=== PATIENT | male | born 1995 | race Caucasian/White ===

== ENCOUNTER → 2021-02-23 09:36 | Outpatient (CLI) | payer OTHER, SELFPAY ==
--- NOTE | 2021-02-23 09:38 | DI.RAD.S_ITS ---
PROCEDURE: XR WRIST LT MIN 3V INDICATIONS: Left wrist pain. TECHNIQUE: 3 views of the wrist were acquired. COMPARISON: None. FINDINGS: IMPRESSION: No acute osseous abnormality. Dictated by: Danny Lamar M.D. on 02/23/2021 at 9:52 Approved by: Danny Lamar M.D. on 02/23/2021 at 9:56
== END ==
PROVIDERS: Referring Provider Nurse Practitioner Family; Visit Provider Nurse Practitioner Family
DX: M25.532 Pain in left wrist (principal)
CPT/HCPCS: 73110

== ENCOUNTER → 2021-08-13 12:39 | Outpatient (CLI) | payer OTHER, SELFPAY ==
--- NOTE | 2021-08-13 | DI.RAD.S_ITS ---
PROCEDURE: XR CHEST 2V INDICATIONS: COUGH TECHNIQUE: 2 views of the chest were acquired. COMPARISON: None. FINDINGS: Surgical changes and devices: None. Lungs and pleura: Lungs are clear. No pleural effusions or pneumothorax. Mediastinum: Mediastinal contours are normal. Heart size is normal. Bones and chest wall: No suspicious bony abnormalities. Soft tissues appear unremarkable. IMPRESSION: No source for cough identified radiographically. Dictated by: Nelson Bhakta RRA Interpreted: Yvette Cruz MD on 08/13/2021 at 12:50 Transcribed by: DAMIR on 08/13/2021 at 12:50 Approved by: Yvette Cruz MD, PhD on 08/13/2021 at 13:08
== END ==
PROVIDERS: Referring Provider Physician Assistant; Visit Provider Physician Assistant
DX: R05.9 Cough, unspecified (principal)
CPT/HCPCS: 71046

== ENCOUNTER 2022-02-25 23:40 | Emergency (ER) | payer OTHER, SELFPAY ==
[2022-02-25 23:54] VITALS: BP 131/100; PULSE 104; RESP 20; TEMP 37.2; O2SAT 96; BMI 40.8
[2022-02-26] VITALS (46 sets, daily range): BP systolic 111–145; BP diastolic 56–79; PULSE 77–97; RESP 12–28; O2SAT 96–100
--- NOTE | 2022-02-26 00:54 | PC.NURSE ---
pt had a plate removed from his right lower leg a week ago yesterday the leg became red and today the leg started oozing and draining, and became painful to bear weight on, pt states until yesterday he was not having any pain and the leg was healing fine. pt was placed on Keflex for the cellulitis yesterday, lower leg is swollen and red incision is intact but oozing
--- NOTE | 2022-02-26 00:57 | DI.RAD.S_ITS ---
PROCEDURE: XR TIBIA FUBULA RT 2V INDICATIONS: recent plate removal TECHNIQUE: 2 views of the tibia and fibula were acquired. COMPARISON: None. FINDINGS: Bones: No fractures or dislocations. There are postsurgical changes within the mid and distal tibial shaft consistent with prior screw plate fixation. Periosteal thickening and sclerosis is demonstrated within the adjacent proximal to mid tibial shaft. No discrete bony erosions. Soft tissues: No suspicious soft tissue calcifications or masses. IMPRESSION: 1. Sequelae of prior surgical fixation in the tibial shaft. 2. Periosteal thickening and sclerosis along the surgical bed are nonspecific and the differential includes sequelae of osteomyelitis or recurrent disease. Recommend further evaluation with a contrast enhanced MRI when clinically feasible. Dictated by: Costa Salvador M.D. on 02/26/2022 at 1:52 Approved by: Costa Salvador M.D. on 02/26/2022 at 1:55
--- NOTE | 2022-02-26 01:03 | ED_ITS ---
HPI - Extremity Injury (Lower) <Tato Meza DO - Last Filed: 02/27/22 18:47> General Chief Complaint: Extremity Injury, Lower Stated Complaint: CELLITUS IN RIGHT LEG POST SURGERY Time Seen by Provider: 02/26/22 00:57 Source: patient Mode of arrival: Ambulatory History of Present Illness HPI Narrative: 26-year-old male nonsmoker with history of osteosarcoma with prior orthopedic oncologic surgery at [facility] in 2019 had painful plate removed at about 10 days ago. He gradually developed some increasing pain, redness and swelling and had a small amount of drainage up until yesterday when he went to an outside facility and had evaluation and was placed on Keflex. He is now had 3 or 4 doses of the Keflex but has had fever and chills with increased pain and swelling had a significant amount of milky reddish drainage from of slightly dehisced incision. There is surrounding redness for the majority of his lower leg. He is not dizzy or lightheaded but does feel weak and nauseated. He denies any chest pain or shortness of breath. He denies vomiting but is slightly nauseated. Related Data Home Medications Medication Instructions Recorded Confirmed acetaminophen 500 mg tablet 1,000 mg PO TID PRN Pain (Scale 02/26/22 02/26/22 Score 4-6) aspirin 325 mg tablet,delayed 325 mg PO QAM 02/26/22 02/26/22 release bupropion HCl 300 mg 24 hr tablet, 300 mg PO QAM 02/26/22 02/26/22 extended release lamotrigine 200 mg tablet 200 mg PO DAILY 02/26/22 02/26/22 Allergies Allergy/AdvReac Type Severity Reaction Status Date / Time No Known Drug Allergies Allergy Unverified 02/23/21 09:38 Review of Systems <Tato Meza DO - Last Filed: 02/27/22 18:47> Review of Systems Narrative: GENERAL: See HPI HEENT: Denies sinus pain, ear pain, sore throat, difficulty swallowing, dizziness. RESPIRATORY: Denies dyspnea, cough, wheezing, hemoptysis, sputum. CARDIOVASCULAR: Denies chest pain, palpitations, orthopnea, edema, GASTROINTESTINAL: See HPI. : Denies dysuria, frequency, incontinence, hematuria, urinary retention. MUSCULOSKELETAL: denies weakness, joint pain, or bony pain SKIN: See HPI NEUROLOGIC: Denies weakness, headache, numbness, change in speech, confusion, seizures, incoordination. PSYCHIATRIC: No concerning psychosocial issues. 12 point review of systems is negative except for those stated above Patient History <Tato Meza DO - Last Filed: 02/27/22 18:47> Social History Smoking Status: Never smoker Smoking Status: Never smoker alcohol intake frequency: 0-2 drinks per day Substance Use Type: marijuana Exam <Tato Meza DO - Last Filed: 02/27/22 18:47> Narrative Exam Narrative: GENERAL: [26] year old patient appears stated age. Well-developed patient, in mild distress. HEAD: Atraumatic. Normocephalic. EYES: Pupils equal round and reactive. Extraocular motions intact. No scleral icterus. No injection or drainage. ENT: Nose without bleeding, purulent drainage. Throat without erythema, tonsillar hypertrophy or exudate. Airway patent. NECK: Trachea midline. Non tender CARDIOVASCULAR: Tachycardic but regular rhythm without murmurs, gallops, or rubs. RESPIRATORY: Clear to auscultation. Breath sounds equal bilaterally. No wheezes, rales, or rhonchi. GASTROINTESTINAL: Abdomen soft, non-tender, nondistended. EXTREMITIES: Right lower extremity with swelling, circumferential erythema and warmth from ankle to just below the knee. Incision has a few small areas of dehiscence with drainage that is bloody but cloudy BACK: Nontender without deformity or crepitance. No flank tenderness. NEURO: AOx3. SKIN: No rash or erythema of visible areas Initial Vital Signs Initial Vital Signs: Vital Signs Temperature 99 F 02/25/22 23:54 Pulse Rate 104 H 02/25/22 23:54 Respiratory Rate 20 02/25/22 23:54 Blood Pressure 131/100 H 02/25/22 23:54 Pulse Oximetry 96 02/25/22 23:54 Oxygen Delivery Method 02/25/22 23:54 <Jae Stewart DO - Last Filed: 02/26/22 18:21> Initial Vital Signs Initial Vital Signs: Vital Signs Temperature 99 F 02/25/22 23:54 Pulse Rate 104 H 02/25/22 23:54 Respiratory Rate 20 02/25/22 23:54 Blood Pressure 131/100 H 02/25/22 23:54 Pulse Oximetry 96 02/25/22 23:54 Oxygen Delivery Method 02/25/22 23:54 <Matthew Elizabeth MD - Last Filed: 02/27/22 13:39> Initial Vital Signs Initial Vital Signs: Vital Signs Temperature 99 F 02/25/22 23:54 Pulse Rate 104 H 02/25/22 23:54 Respiratory Rate 20 02/25/22 23:54 Blood Pressure 131/100 H 02/25/22 23:54 Pulse Oximetry 96 02/25/22 23:54 Oxygen Delivery Method 02/25/22 23:54 Course <Tato Meza DO - Last Filed: 02/27/22 18:47> Orders Ordered: Discontinued Medications Enoxaparin Sodium (Enoxaparin 40 Mg/0.4 Ml Syringe) 40 mg SUBCUT DAILY [facility] Last Admin: 02/27/22 09:28 Dose: 40 mg Documented By: UGO Lactated Ringer's (Lactated Ringers) 2,328 mls @ 776 mls/hr 30 ml/kg infuse over 3 hr (2328 ml) IV NOW ONE Stop: 02/26/22 03:56 Last Infusion: 02/26/22 04:00 Dose: 0 mls/hr Documented By: Admin: 02/26/22 01:09 Dose: 776 mls/hr Documented By: JACK Vancomycin HCl/Dextrose (Vancomycin) 2,000 mg in 400 mls @ 200 mls/hr IV NOW ONE Stop: 02/26/22 07:11 Last Infusion: 02/26/22 07:29 Dose: 0 mls/hr Documented By: Admin: 02/26/22 05:24 Dose: 200 mls/hr Documented By: PARUL Vancomycin HCl/Dextrose (Vancomycin) 1,500 mg in 300 mls @ 200 mls/hr IV Q12H [facility] Last Infusion: 02/27/22 06:41 Dose: 0 mls/hr Documented By: Admin: 02/27/22 05:01 Dose: 200 mls/hr Documented By: Infusion: 02/26/22 19:15 Dose: 0 mls/hr Documented By: Admin: 02/26/22 17:32 Dose: 200 mls/hr Documented By: LETA Ketorolac Tromethamine (Ketorolac 30 Mg/Ml Vial) 30 mg IV NOW ONE Stop: 02/27/22 10:53 Last Admin: 02/27/22 11:34 Dose: 30 mg Documented By: ELDA Vancomycin HCl (Vancomycin Per Pharmacy) 1 request [facility] NOW ONE Stop: 02/26/22 16:11 Last Admin: 02/26/22 17:32 Dose: 1 request Documented By: LETA Vancomycin HCl (Vancomycin Trough) 1 request [facility] [address] [facility] Stop: 02/27/22 16:31 Vancomycin HCl (Vancomycin Peak) 1 request [facility] [address] [facility] Stop: 02/27/22 19:31 Consultations Consultation #1: [phone] - call to /[facility] transfer given sepsis and post operative infection 0523 - call back from Orthopedic Oncology ([place]). Requests Vanco 20mg/kg and transfer to ortho service. Currently no beds however, requests MRI RLE w/wo in event of prolonged delay Vital Signs Vital signs: Vital Signs - 8 hr 02/27/22 05:30 02/27/22 06:00 02/27/22 06:01 Pulse Rate 73 74 Respiratory Rate Blood Pressure 116/85 Pulse Oximetry 98 97 02/27/22 06:01 02/27/22 06:30 02/27/22 07:00 Pulse Rate 71 73 81 Respiratory Rate 18 Blood Pressure Pulse Oximetry 98 98 98 02/27/22 07:30 02/27/22 08:00 02/27/22 08:01 Pulse Rate 74 68 75 Respiratory Rate Blood Pressure Pulse Oximetry 97 99 99 02/27/22 08:01 02/27/22 08:30 02/27/22 09:00 Pulse Rate 69 67 Respiratory Rate Blood Pressure 116/59 L Pulse Oximetry 99 97 02/27/22 09:29 02/27/22 09:29 02/27/22 09:30 Pulse Rate 81 81 Respiratory Rate Blood Pressure 121/79 Pulse Oximetry 98 99 02/27/22 10:00 02/27/22 10:00 Pulse Rate 71 Respiratory Rate Blood Pressure 125/67 Pulse Oximetry 98 <Jae Stewart DO - Last Filed: 02/26/22 18:21> Orders Ordered: Discontinued Medications Enoxaparin Sodium (Enoxaparin 40 Mg/0.4 Ml Syringe) 40 mg SUBCUT DAILY [facility] Last Admin: 02/27/22 09:28 Dose: 40 mg Documented By: UGO Lactated Ringer's (Lactated Ringers) 2,328 mls @ 776 mls/hr 30 ml/kg infuse over 3 hr (2328 ml) IV NOW ONE Stop: 02/26/22 03:56 Last Infusion: 02/26/22 04:00 Dose: 0 mls/hr Documented By: Admin: 02/26/22 01:09 Dose: 776 mls/hr Documented By: JACK Vancomycin HCl/Dextrose (Vancomycin) 2,000 mg in 400 mls @ 200 mls/hr IV NOW ONE Stop: 02/26/22 07:11 Last Infusion: 02/26/22 07:29 Dose: 0 mls/hr Documented By: Admin: 02/26/22 05:24 Dose: 200 mls/hr Documented By: PARUL Vancomycin HCl/Dextrose (Vancomycin) 1,500 mg in 300 mls @ 200 mls/hr IV Q12H [facility] Last Infusion: 02/27/22 06:41 Dose: 0 mls/hr Documented By: Admin: 02/27/22 05:01 Dose: 200 mls/hr Documented By: Infusion: 02/26/22 19:15 Dose: 0 mls/hr Documented By: Admin: 02/26/22 17:32 Dose: 200 mls/hr Documented By: LETA Ketorolac Tromethamine (Ketorolac 30 Mg/Ml Vial) 30 mg IV NOW ONE Stop: 02/27/22 10:53 Last Admin: 02/27/22 11:34 Dose: 30 mg Documented By: ELDA Vancomycin HCl (Vancomycin Per Pharmacy) 1 request [facility] NOW ONE Stop: 02/26/22 16:11 Last Admin: 02/26/22 17:32 Dose: 1 request Documented By: LETA Vancomycin HCl (Vancomycin Trough) 1 request [facility] [address] [facility] Stop: 02/27/22 16:31 Vancomycin HCl (Vancomycin Peak) 1 request [facility] [address] [facility] Stop: 02/27/22 19:31 Vital Signs Vital signs: Vital Signs - 8 hr 02/27/22 05:30 02/27/22 06:00 02/27/22 06:01 Pulse Rate 73 74 Respiratory Rate Blood Pressure 116/85 Pulse Oximetry 98 97 02/27/22 06:01 02/27/22 06:30 02/27/22 07:00 Pulse Rate 71 73 81 Respiratory Rate 18 Blood Pressure Pulse Oximetry 98 98 98 02/27/22 07:30 02/27/22 08:00 02/27/22 08:01 Pulse Rate 74 68 75 Respiratory Rate Blood Pressure Pulse Oximetry 97 99 99 02/27/22 08:01 02/27/22 08:30 02/27/22 09:00 Pulse Rate 69 67 Respiratory Rate Blood Pressure 116/59 L Pulse Oximetry 99 97 02/27/22 09:29 02/27/22 09:29 02/27/22 09:30 Pulse Rate 81 81 Respiratory Rate Blood Pressure 121/79 Pulse Oximetry 98 99 02/27/22 10:00 02/27/22 10:00 Pulse Rate 71 Respiratory Rate Blood Pressure 125/67 Pulse Oximetry 98 <Matthew Elizabeth MD - Last Filed: 02/27/22 13:39> Course Course Narrative: Care was assumed from Dr. Meza at change of shift. I evaluated his wound. He was complaining about continues bleeding. He has a draining seroma, I was able to express a fair amount of fluid from the surgical site. I informed him of a prior conversation with [facility], he is on a waiting list for 4-5 days. He was quite upset, tell me he was in his then he would go down quickly and go to the OR. After my 1st visit he had a discussion with his father who is status intent of picking up the patient and driving him to the [facility] ER. They have now left. They walked out of the ER in [place], [place] yesterday, to come here. We have forwarded radiology and clinical data to you tub. Dr. Vargas at [facility] is notified of the patient's pending arrival.-Shaun CORDOVA. 13:30 02/27/22. Orders Ordered: Discontinued Medications Enoxaparin Sodium (Enoxaparin 40 Mg/0.4 Ml Syringe) 40 mg SUBCUT DAILY [facility] Last Admin: 02/27/22 09:28 Dose: 40 mg Documented By: Lactated Ringer's (Lactated Ringers) 2,328 mls @ 776 mls/hr 30 ml/kg infuse over 3 hr (2328 ml) IV NOW ONE Stop: 02/26/22 03:56 Last Infusion: 02/26/22 04:00 Dose: 0 mls/hr Documented By: Admin: 02/26/22 01:09 Dose: 776 mls/hr Documented By: JACK Vancomycin HCl/Dextrose (Vancomycin) 2,000 mg in 400 mls @ 200 mls/hr IV NOW ONE Stop: 02/26/22 07:11 Last Infusion: 02/26/22 07:29 Dose: 0 mls/hr Documented By: Admin: 02/26/22 05:24 Dose: 200 mls/hr Documented By: PARUL Vancomycin HCl/Dextrose (Vancomycin) 1,500 mg in 300 mls @ 200 mls/hr IV Q12H [facility] Last Infusion: 02/27/22 06:41 Dose: 0 mls/hr Documented By: Admin: 02/27/22 05:01 Dose: 200 mls/hr Documented By: Infusion: 02/26/22 19:15 Dose: 0 mls/hr Documented By: Admin: 02/26/22 17:32 Dose: 200 mls/hr Documented By: LETA Ketorolac Tromethamine (Ketorolac 30 Mg/Ml Vial) 30 mg IV NOW ONE Stop: 02/27/22 10:53 Last Admin: 02/27/22 11:34 Dose: 30 mg Documented By: ELDA Vancomycin HCl (Vancomycin Per Pharmacy) 1 request [facility] NOW ONE Stop: 02/26/22 16:11 Last Admin: 02/26/22 17:32 Dose: 1 request Documented By: LETA Vancomycin HCl (Vancomycin Trough) 1 request [facility] [address] [facility] Stop: 02/27/22 16:31 Vancomycin HCl (Vancomycin Peak) 1 request [facility] [address] [facility] Stop: 02/27/22 19:31 Vital Signs Vital signs: Vital Signs - 8 hr 02/27/22 05:30 02/27/22 06:00 02/27/22 06:01 Pulse Rate 73 74 Respiratory Rate Blood Pressure 116/85 Pulse Oximetry 98 97 02/27/22 06:01 02/27/22 06:30 02/27/22 07:00 Pulse Rate 71 73 81 Respiratory Rate 18 Blood Pressure Pulse Oximetry 98 98 98 02/27/22 07:30 02/27/22 08:00 02/27/22 08:01 Pulse Rate 74 68 75 Respiratory Rate Blood Pressure Pulse Oximetry 97 99 99 02/27/22 08:01 02/27/22 08:30 02/27/22 09:00 Pulse Rate 69 67 Respiratory Rate Blood Pressure 116/59 L Pulse Oximetry 99 97 02/27/22 09:29 02/27/22 09:29 02/27/22 09:30 Pulse Rate 81 81 Respiratory Rate Blood Pressure 121/79 Pulse Oximetry 98 99 02/27/22 10:00 02/27/22 10:00 Pulse Rate 71 Respiratory Rate Blood Pressure 125/67 Pulse Oximetry 98 MDM - Extremity Injury (Lower) <Tato Meza DO - Last Filed: 02/27/22 18:47> Lab Data Result diagrams: 02/26/22 01:00 02/26/22 01:00 Labs: Lab Results 02/26/22 02/26/22 02/26/22 Range/Units 01:00 01:00 01:00 WBC 20.9 H (4.5-11.0) X10^3/uL RBC 4.77 (4.5-5.9) X10^6/uL Hgb 14.8 (13.5-17.5) g/dL Hct 43.2 (41-53) % MCV 90.4 (80-100) fL MCH 30.9 (26-34) PG MCHC 34.2 (30-36) % RDW 12.9 (11.6-14.8) % Plt Count 185 (150-400) X10^3/uL Neut % (Auto) 84.7 H (50-75) % Lymph % (Auto) 6.9 L (25-40) % [place] % (Auto) 6.8 (3-14) % Eos % (Auto) 1.4 L (2-4) % Baso % (Auto) 0.2 (0-2) % Neut # (Auto) 06375 H (8543-3680) /uL Lymph # (Auto) 1400 (8538-4722) /uL [place] # (Auto) 1400 H (0-900) /uL Eos # (Auto) 300 (0-450) /uL Baso # (Auto) 100 (0-100) /uL Sodium 139 (137-145) mmol/L Potassium 3.6 (3.4-5.1) mmol/L Chloride 100 (98-107) mmol/L Carbon Dioxide 27 (22-32) mmol/L BUN 20 (9-20) mg/dL Creatinine 1.11 (0.66-1.25) mg/dL Estimated GFR > 60 (>60) mL/min BUN/Creatinine Ratio 18.0 (6-22) Glucose 108 H (70-100) mg/dL Lactate 0.7 (0.7-2.1) mmol/L Calcium 9.2 (8.4-10.2) mg/dL Total Bilirubin 2.3 H (0.2-1.3) mg/dL AST 30 (17-59) IU/L ALT 49 (<50) IU/L Alkaline Phosphatase 96 (38-126) U/L Total Creatine Kinase 52 L (55-170) U/L CK-MB (CK-2) TNP CK-MB (CK-2) Rel Index TNP Troponin I < 0.012 (0.01-0.034) ng/mL Total Protein 8.1 (6.3-8.2) g/dL Albumin 4.4 (3.5-5.0) g/dL Globulin 3.7 (1.7-4.1) g/dL Albumin/Globulin Ratio 1.2 (1.0-2.8) Procalcitonin 0.62 H (<0.5) ng/mL Urine RBC (0-5/HPF) Urine WBC (0-5/HPF) Ur Squamous Epith Cells (0-5/HPF) Urine Bacteria (None) Ur Culture Indicated? A. baumannii (PCR) (Not Detect) Stacy albicans (PCR) (Not Detect) C. glabrata (PCR) (Not Detect) C. krusei (PCR) (Not Detect) C. parapsilosis (PCR) (Not Detect) C. tropicalis (PCR) (Not Detect) SARS-CoV-2 (PCR) (Negative) Enterobacteriac sp PCR (Not Detect) E. cloacae complex PCR (Not Detect) Enterococcus sp PCR (Not Detect) E. coli (PCR) (Not Detect) H. influenzae (PCR) (Not Detect) Klebsiella oxytoca PCR (Not Detect) Klebsiella pneumoniae (Not Detect) List. monocytogenes PCR (Not Detect) N. meningitidis (PCR) (Not Detect) Proteus species (PCR) (Not Detect) Serratia marcescens PCR (Not Detect) Staphylococcus sp PCR (Not Detect) Staph aureus (PCR) (Not Detect) mecA-Methicil Res Gene Streptococcus sp PCR (Not Detect) Group A Strep (PCR) (Not Detect) Strep agalactiae (PCR) (Not Detect) Strep pneumoniae (PCR) (Not Detect) P. aeruginosa (PCR) (Not Detect) [place]/B-Vanco Res Genes KPC-Carbap Res Gene PCR 02/26/22 02/26/22 02/26/22 Range/Units 01:23 03:46 07:38 WBC (4.5-11.0) X10^3/uL RBC (4.5-5.9) X10^6/uL Hgb (13.5-17.5) g/dL Hct (41-53) % MCV (80-100) fL MCH (26-34) PG MCHC (30-36) % RDW (11.6-14.8) % Plt Count (150-400) X10^3/uL Neut % (Auto) (50-75) % Lymph % (Auto) (25-40) % [place] % (Auto) (3-14) % Eos % (Auto) (2-4) % Baso % (Auto) (0-2) % Neut # (Auto) (7358-7703) /uL Lymph # (Auto) (9631-2414) /uL [place] # (Auto) (0-900) /uL Eos # (Auto) (0-450) /uL Baso # (Auto) (0-100) /uL Sodium (137-145) mmol/L Potassium (3.4-5.1) mmol/L Chloride (98-107) mmol/L Carbon Dioxide (22-32) mmol/L BUN (9-20) mg/dL Creatinine (0.66-1.25) mg/dL Estimated GFR (>60) mL/min BUN/Creatinine Ratio (6-22) Glucose (70-100) mg/dL Lactate (0.7-2.1) mmol/L Calcium (8.4-10.2) mg/dL Total Bilirubin (0.2-1.3) mg/dL AST (17-59) IU/L ALT (<50) IU/L Alkaline Phosphatase (38-126) U/L Total Creatine Kinase (55-170) U/L CK-MB (CK-2) CK-MB (CK-2) Rel Index Troponin I (0.01-0.034) ng/mL Total Protein (6.3-8.2) g/dL Albumin (3.5-5.0) g/dL Globulin (1.7-4.1) g/dL Albumin/Globulin Ratio (1.0-2.8) Procalcitonin (<0.5) ng/mL Urine RBC None seen (0-5/HPF) Urine WBC None seen (0-5/HPF) Ur Squamous Epith Cells None seen (0-5/HPF) Urine Bacteria None seen (None) Ur Culture Indicated? Cult not indicated A. baumannii (PCR) Not detected (Not Detect) Stacy albicans (PCR) Not detected (Not Detect) C. glabrata (PCR) Not detected (Not Detect) C. krusei (PCR) Not detected (Not Detect) C. parapsilosis (PCR) Not detected (Not Detect) C. tropicalis (PCR) Not detected (Not Detect) SARS-CoV-2 (PCR) Negative (Negative) Enterobacteriac sp PCR Not detected (Not Detect) E. cloacae complex PCR Not detected (Not Detect) Enterococcus sp PCR Not detected (Not Detect) E. coli (PCR) Not detected (Not Detect) H. influenzae (PCR) Not detected (Not Detect) Klebsiella oxytoca PCR Not detected (Not Detect) Klebsiella pneumoniae Not detected (Not Detect) List. monocytogenes PCR Not detected (Not Detect) N. meningitidis (PCR) Not detected (Not Detect) Proteus species (PCR) Not detected (Not Detect) Serratia marcescens PCR Not detected (Not Detect) Staphylococcus sp PCR Not detected (Not Detect) Staph aureus (PCR) Not detected (Not Detect) mecA-Methicil Res Gene Not Reportable Streptococcus sp PCR Not detected (Not Detect) Group A Strep (PCR) Not detected (Not Detect) Strep agalactiae (PCR) Not detected (Not Detect) Strep pneumoniae (PCR) Not detected (Not Detect) P. aeruginosa (PCR) Not detected (Not Detect) [place]/B-Vanco Res Genes Not Reportable KPC-Carbap Res Gene PCR Not Reportable Urine Dip Bedside Urine Glucose Negative Bedside Urine Bilirubin - Negative Bedside Urine Ketone +++ 80 Urine Specific [place] 1.010 Bedside Urine Occult Blood - Negative Bedside Urine pH 7.5 Bedside Urine Protein + 30 Bedside Urine Urobilinogen - Negative Bedside Urine Nitrite - Negative Bedside Urine Leukocytes - Negative Esterase Imaging Data Extremity x-ray #1: Radiologist's Impression: [address] [address] XRay Report Signed Patient: Julius Chacon MR#: [id number] : 1995 Acct:[id number] Age/Sex: 26 / M Date of Service: 02/26/22 Loc: ED Accession Number: [id number] ?? Procedure: XR tibia fibula RT 2V Ordering Provider: Tato Meza D.O. PROCEDURE:? XR TIBIA FUBULA RT 2V ? INDICATIONS:? recent plate removal ? TECHNIQUE:? 2 views of the tibia and fibula were acquired.? ? COMPARISON:? None. ? FINDINGS:? ? Bones:? No fractures or dislocations.? There are postsurgical changes within the mid and distal tibial shaft consistent with prior screw plate fixation.? Periosteal thickening and sclerosis is demonstrated within the adjacent proximal to mid tibial shaft.? No discrete bony erosions. ? Soft tissues:? No suspicious soft tissue calcifications or masses.? ? IMPRESSION:? ? 1. Sequelae of prior surgical fixation in the tibial shaft. ? 2. Periosteal thickening and sclerosis along the surgical bed are nonspecific and the differential includes sequelae of osteomyelitis or recurrent disease.? Recommend further evaluation with a contrast enhanced MRI when clinically feasible.? ? ? Dictated by: Costa Salvador M.D. on 02/26/2022 at 1:52 ? ? Approved by: Costa Salvador M.D. on 02/26/2022 at 1:55 ? [facility] Narrative Medical decision making narrative: Dr stewart: Received turned over. Reviewed patient's history and physical exam and labs performed to this point. MRI shows cellulitis and deep fluid pocket. Images and push to [facility]. Will continue to keep in the emergency department until he has a bed at [facility] 02/26/22 1800 (Derrick) patient received back in signout. No significant change. Waiting on bed 2200 - call to /[facility] to discuss DVT prophylaxis. Ortho will call back [phone] - transfer center states they will call back at [phone] - [facility]/ Ortho requests patient be given Lovenox daily <Jae Stewart DO - Last Filed: 02/26/22 18:21> Lab Data Labs: Lab Results 02/26/22 02/26/22 02/26/22 Range/Units 01:00 01:00 01:00 WBC 20.9 H (4.5-11.0) X10^3/uL RBC 4.77 (4.5-5.9) X10^6/uL Hgb 14.8 (13.5-17.5) g/dL Hct 43.2 (41-53) % MCV 90.4 (80-100) fL MCH 30.9 (26-34) PG MCHC 34.2 (30-36) % RDW 12.9 (11.6-14.8) % Plt Count 185 (150-400) X10^3/uL Neut % (Auto) 84.7 H (50-75) % Lymph % (Auto) 6.9 L (25-40) % [place] % (Auto) 6.8 (3-14) % Eos % (Auto) 1.4 L (2-4) % Baso % (Auto) 0.2 (0-2) % Neut # (Auto) 79122 H (1632-4838) /uL Lymph # (Auto) 1400 (1219-4562) /uL [place] # (Auto) 1400 H (0-900) /uL Eos # (Auto) 300 (0-450) /uL Baso # (Auto) 100 (0-100) /uL Sodium 139 (137-145) mmol/L Potassium 3.6 (3.4-5.1) mmol/L Chloride 100 (98-107) mmol/L Carbon Dioxide 27 (22-32) mmol/L BUN 20 (9-20) mg/dL Creatinine 1.11 (0.66-1.25) mg/dL Estimated GFR > 60 (>60) mL/min BUN/Creatinine Ratio 18.0 (6-22) Glucose 108 H (70-100) mg/dL Lactate 0.7 (0.7-2.1) mmol/L Calcium 9.2 (8.4-10.2) mg/dL Total Bilirubin 2.3 H (0.2-1.3) mg/dL AST 30 (17-59) IU/L ALT 49 (<50) IU/L Alkaline Phosphatase 96 (38-126) U/L Total Creatine Kinase 52 L (55-170) U/L CK-MB (CK-2) TNP CK-MB (CK-2) Rel Index TNP Troponin I < 0.012 (0.01-0.034) ng/mL Total Protein 8.1 (6.3-8.2) g/dL Albumin 4.4 (3.5-5.0) g/dL Globulin 3.7 (1.7-4.1) g/dL Albumin/Globulin Ratio 1.2 (1.0-2.8) Procalcitonin 0.62 H (<0.5) ng/mL Urine RBC (0-5/HPF) Urine WBC (0-5/HPF) Ur Squamous Epith Cells (0-5/HPF) Urine Bacteria (None) Ur Culture Indicated? A. baumannii (PCR) (Not Detect) Stacy albicans (PCR) (Not Detect) C. glabrata (PCR) (Not Detect) C. krusei (PCR) (Not Detect) C. parapsilosis (PCR) (Not Detect) C. tropicalis (PCR) (Not Detect) SARS-CoV-2 (PCR) (Negative) Enterobacteriac sp PCR (Not Detect) E. cloacae complex PCR (Not Detect) Enterococcus sp PCR (Not Detect) E. coli (PCR) (Not Detect) H. influenzae (PCR) (Not Detect) Klebsiella oxytoca PCR (Not Detect) Klebsiella pneumoniae (Not Detect) List. monocytogenes PCR (Not Detect) N. meningitidis (PCR) (Not Detect) Proteus species (PCR) (Not Detect) Serratia marcescens PCR (Not Detect) Staphylococcus sp PCR (Not Detect) Staph aureus (PCR) (Not Detect) mecA-Methicil Res Gene Streptococcus sp PCR (Not Detect) Group A Strep (PCR) (Not Detect) Strep agalactiae (PCR) (Not Detect) Strep pneumoniae (PCR) (Not Detect) P. aeruginosa (PCR) (Not Detect) [place]/B-Vanco Res Genes KPC-Carbap Res Gene PCR 02/26/22 02/26/22 02/26/22 Range/Units 01:23 03:46 07:38 WBC (4.5-11.0) X10^3/uL RBC (4.5-5.9) X10^6/uL Hgb (13.5-17.5) g/dL Hct (41-53) % MCV (80-100) fL MCH (26-34) PG MCHC (30-36) % RDW (11.6-14.8) % Plt Count (150-400) X10^3/uL Neut % (Auto) (50-75) % Lymph % (Auto) (25-40) % [place] % (Auto) (3-14) % Eos % (Auto) (2-4) % Baso % (Auto) (0-2) % Neut # (Auto) (8447-4656) /uL Lymph # (Auto) (3186-0243) /uL [place] # (Auto) (0-900) /uL Eos # (Auto) (0-450) /uL Baso # (Auto) (0-100) /uL Sodium (137-145) mmol/L Potassium (3.4-5.1) mmol/L Chloride (98-107) mmol/L Carbon Dioxide (22-32) mmol/L BUN (9-20) mg/dL Creatinine (0.66-1.25) mg/dL Estimated GFR (>60) mL/min BUN/Creatinine Ratio (6-22) Glucose (70-100) mg/dL Lactate (0.7-2.1) mmol/L Calcium (8.4-10.2) mg/dL Total Bilirubin (0.2-1.3) mg/dL AST (17-59) IU/L ALT (<50) IU/L Alkaline Phosphatase (38-126) U/L Total Creatine Kinase (55-170) U/L CK-MB (CK-2) CK-MB (CK-2) Rel Index Troponin I (0.01-0.034) ng/mL Total Protein (6.3-8.2) g/dL Albumin (3.5-5.0) g/dL Globulin (1.7-4.1) g/dL Albumin/Globulin Ratio (1.0-2.8) Procalcitonin (<0.5) ng/mL Urine RBC None seen (0-5/HPF) Urine WBC None seen (0-5/HPF) Ur Squamous Epith Cells None seen (0-5/HPF) Urine Bacteria None seen (None) Ur Culture Indicated? Cult not indicated A. baumannii (PCR) Not detected (Not Detect) Stacy albicans (PCR) Not detected (Not Detect) C. glabrata (PCR) Not detected (Not Detect) C. krusei (PCR) Not detected (Not Detect) C. parapsilosis (PCR) Not detected (Not Detect) C. tropicalis (PCR) Not detected (Not Detect) SARS-CoV-2 (PCR) Negative (Negative) Enterobacteriac sp PCR Not detected (Not Detect) E. cloacae complex PCR Not detected (Not Detect) Enterococcus sp PCR Not detected (Not Detect) E. coli (PCR) Not detected (Not Detect) H. influenzae (PCR) Not detected (Not Detect) Klebsiella oxytoca PCR Not detected (Not Detect) Klebsiella pneumoniae Not detected (Not Detect) List. monocytogenes PCR Not detected (Not Detect) N. meningitidis (PCR) Not detected (Not Detect) Proteus species (PCR) Not detected (Not Detect) Serratia marcescens PCR Not detected (Not Detect) Staphylococcus sp PCR Not detected (Not Detect) Staph aureus (PCR) Not detected (Not Detect) mecA-Methicil Res Gene Not Reportable Streptococcus sp PCR Not detected (Not Detect) Group A Strep (PCR) Not detected (Not Detect) Strep agalactiae (PCR) Not detected (Not Detect) Strep pneumoniae (PCR) Not detected (Not Detect) P. aeruginosa (PCR) Not detected (Not Detect) [place]/B-Vanco Res Genes Not Reportable KPC-Carbap Res Gene PCR Not Reportable Urine Dip Bedside Urine Glucose Negative Bedside Urine Bilirubin - Negative Bedside Urine Ketone +++ 80 Urine Specific [place] 1.010 Bedside Urine Occult Blood - Negative Bedside Urine pH 7.5 Bedside Urine Protein + 30 Bedside Urine Urobilinogen - Negative Bedside Urine Nitrite - Negative Bedside Urine Leukocytes - Negative Esterase Imaging Data MRI LE: Radiologist's Impression: [address] [address] Magnetic Resonance Report Signed Patient: Julius Chacon MR#: [id number] : 1995 Acct:[id number] Age/Sex: 26 / M Date of Service: 02/26/22 Loc: ED Accession Number: [id number] ?? Procedure: MR lower leg RT wo/w con Ordering Provider: Tato Meza D.O. PROCEDURE:? MR LOWER LEG RT WO/W CON ? INDICATIONS:? post operative infection, request per ortho at ? TECHNIQUE:? Noncontrast coronal T1 spin echo and STIR, sagittal T1 spin echo with fat saturation and STIR, axial T1 spin echo and T2 fast spin echo with fat saturation.? After the administration of contrast, axial/sagittal/coronal T1 spin echo with fat saturation through the right lower leg.? ? COMPARISON:? [facility], CR, XR TIBIA FIBULA RT 2V, 02/26/2022, 0:57. ? FINDINGS:? Image quality:? Excellent.? ? Bones:? Evidence of prior surgery involving mid to distal tibial shaft is seen with surgical screw tracts seen.? There is a healing mid to distal tibial shaft fr acture.? No marrow edema.? No acute fracture or dislocation.? No abnormal intraosseous enhancement. ? Soft tissues:? Significant soft tissue edema and swelling along medial aspect of mid to distal right lower leg over mid to distal tibial shaft is seen and show mild heterogeneous contrast enhancement.? There is a lobulated nonenhancing fluid collection within this area and measures up to 3.6 x 1.9 x 7 cm in size series 4, image 20 and series 8, image 12.? No thick peripherally enhancing capsule is noted.? Fluid is seen extending along fascial planes superficial and deep to the gastrocnemius mu scle.? Mild T2 hyperintense signal within anterior and medial portion of medial head gastrocnemius muscle in mid calf level is seen.? No intramuscular collection is seen.? No other area of abnormal enhancement. ? IMPRESSION:? 1. Finding is suggestive of cellulitis involving medial and posterior right lower leg soft tissue at the level of mid to distal tibial shaft over prior surgical site.? Lobulated fluid collection in medial lower leg soft tissue within the area of cellulitis is seen measures up to 3.6 x 1.9 x 7 cm in size.? Finding likely represent organizing hematoma or seroma.? Early abscess collection cannot be excluded.? Clinical and radiographic follow-up is recommended. ? 2. Postsurgical changes involving mid to distal tibial shaft from prior ORIF.? Healing mid to distal tibial shaft fracture.? No MR evidence of osteomyelitis.? New ? 3. Suggestion of myositis involving anterior and medial portion of gastrocnemius muscle medial head.? No discrete intramuscular fluid collection.? ? Dictated by: Tony Candelaria M.D. on 02/26/2022 at 8:50 ? ? Approved by: Tony Candelaria M.D. on 02/26/2022 at 9:10?? MDM Narrative Medical decision making narrative: Dr stewart: Received turned over. Reviewed patient's history and physical exam and labs performed to this point. MRI shows cellulitis and deep fluid pocket. Images and push to [facility]. Will continue to keep in the emergency department until he has a bed at [facility]. <Matthew Elizabeth MD - Last Filed: 02/27/22 13:39> Lab Data Labs: Lab Results 02/26/22 02/26/22 02/26/22 Range/Units 01:00 01:00 01:00 WBC 20.9 H (4.5-11.0) X10^3/uL RBC 4.77 (4.5-5.9) X10^6/uL Hgb 14.8 (13.5-17.5) g/dL Hct 43.2 (41-53) % MCV 90.4 (80-100) fL MCH 30.9 (26-34) PG MCHC 34.2 (30-36) % RDW 12.9 (11.6-14.8) % Plt Count 185 (150-400) X10^3/uL Neut % (Auto) 84.7 H (50-75) % Lymph % (Auto) 6.9 L (25-40) % [place] % (Auto) 6.8 (3-14) % Eos % (Auto) 1.4 L (2-4) % Baso % (Auto) 0.2 (0-2) % Neut # (Auto) 69822 H (9994-9791) /uL Lymph # (Auto) 1400 (3567-0266) /uL [place] # (Auto) 1400 H (0-900) /uL Eos # (Auto) 300 (0-450) /uL Baso # (Auto) 100 (0-100) /uL Sodium 139 (137-145) mmol/L Potassium 3.6 (3.4-5.1) mmol/L Chloride 100 (98-107) mmol/L Carbon Dioxide 27 (22-32) mmol/L BUN 20 (9-20) mg/dL Creatinine 1.11 (0.66-1.25) mg/dL Estimated GFR > 60 (>60) mL/min BUN/Creatinine Ratio 18.0 (6-22) Glucose 108 H (70-100) mg/dL Lactate 0.7 (0.7-2.1) mmol/L Calcium 9.2 (8.4-10.2) mg/dL Total Bilirubin 2.3 H (0.2-1.3) mg/dL AST 30 (17-59) IU/L ALT 49 (<50) IU/L Alkaline Phosphatase 96 (38-126) U/L Total Creatine Kinase 52 L (55-170) U/L CK-MB (CK-2) TNP CK-MB (CK-2) Rel Index TNP Troponin I < 0.012 (0.01-0.034) ng/mL Total Protein 8.1 (6.3-8.2) g/dL Albumin 4.4 (3.5-5.0) g/dL Globulin 3.7 (1.7-4.1) g/dL Albumin/Globulin Ratio 1.2 (1.0-2.8) Procalcitonin 0.62 H (<0.5) ng/mL Urine RBC (0-5/HPF) Urine WBC (0-5/HPF) Ur Squamous Epith Cells (0-5/HPF) Urine Bacteria (None) Ur Culture Indicated? A. baumannii (PCR) (Not Detect) Stacy albicans (PCR) (Not Detect) C. glabrata (PCR) (Not Detect) C. krusei (PCR) (Not Detect) C. parapsilosis (PCR) (Not Detect) C. tropicalis (PCR) (Not Detect) SARS-CoV-2 (PCR) (Negative) Enterobacteriac sp PCR (Not Detect) E. cloacae complex PCR (Not Detect) Enterococcus sp PCR (Not Detect) E. coli (PCR) (Not Detect) H. influenzae (PCR) (Not Detect) Klebsiella oxytoca PCR (Not Detect) Klebsiella pneumoniae (Not Detect) List. monocytogenes PCR (Not Detect) N. meningitidis (PCR) (Not Detect) Proteus species (PCR) (Not Detect) Serratia marcescens PCR (Not Detect) Staphylococcus sp PCR (Not Detect) Staph aureus (PCR) (Not Detect) mecA-Methicil Res Gene Streptococcus sp PCR (Not Detect) Group A Strep (PCR) (Not Detect) Strep agalactiae (PCR) (Not Detect) Strep pneumoniae (PCR) (Not Detect) P. aeruginosa (PCR) (Not Detect) [place]ail[place]/B-Vanco Res Genes KPC-Carbap Res Gene PCR 02/26/22 02/26/22 02/26/22 Range/Units 01:23 03:46 07:38 WBC (4.5-11.0) X10^3/uL RBC (4.5-5.9) X10^6/uL Hgb (13.5-17.5) g/dL Hct (41-53) % MCV (80-100) fL MCH (26-34) PG MCHC (30-36) % RDW (11.6-14.8) % Plt Count (150-400) X10^3/uL Neut % (Auto) (50-75) % Lymph % (Auto) (25-40) % [place] % (Auto) (3-14) % Eos % (Auto) (2-4) % Baso % (Auto) (0-2) % Neut # (Auto) (9230-4354) /uL Lymph # (Auto) (9313-1982) /uL [place] # (Auto) (0-900) /uL Eos # (Auto) (0-450) /uL Baso # (Auto) (0-100) /uL Sodium (137-145) mmol/L Potassium (3.4-5.1) mmol/L Chloride (98-107) mmol/L Carbon Dioxide (22-32) mmol/L BUN (9-20) mg/dL Creatinine (0.66-1.25) mg/dL Estimated GFR (>60) mL/min BUN/Creatinine Ratio (6-22) Glucose (70-100) mg/dL Lactate (0.7-2.1) mmol/L Calcium (8.4-10.2) mg/dL Total Bilirubin (0.2-1.3) mg/dL AST (17-59) IU/L ALT (<50) IU/L Alkaline Phosphatase (38-126) U/L Total Creatine Kinase (55-170) U/L CK-MB (CK-2) CK-MB (CK-2) Rel Index Troponin I (0.01-0.034) ng/mL Total Protein (6.3-8.2) g/dL Albumin (3.5-5.0) g/dL Globulin (1.7-4.1) g/dL Albumin/Globulin Ratio (1.0-2.8) Procalcitonin (<0.5) ng/mL Urine RBC None seen (0-5/HPF) Urine WBC None seen (0-5/HPF) Ur Squamous Epith Cells None seen (0-5/HPF) Urine Bacteria None seen (None) Ur Culture Indicated? Cult not indicated A. baumannii (PCR) Not detected (Not Detect) Stacy albicans (PCR) Not detected (Not Detect) C. glabrata (PCR) Not detected (Not Detect) C. krusei (PCR) Not detected (Not Detect) C. parapsilosis (PCR) Not detected (Not Detect) C. tropicalis (PCR) Not detected (Not Detect) SARS-CoV-2 (PCR) Negative (Negative) Enterobacteriac sp PCR Not detected (Not Detect) E. cloacae complex PCR Not detected (Not Detect) Enterococcus sp PCR Not detected (Not Detect) E. coli (PCR) Not detected (Not Detect) H. influenzae (PCR) Not detected (Not Detect) Klebsiella oxytoca PCR Not detected (Not Detect) Klebsiella pneumoniae Not detected (Not Detect) List. monocytogenes PCR Not detected (Not Detect) N. meningitidis (PCR) Not detected (Not Detect) Proteus species (PCR) Not detected (Not Detect) Serratia marcescens PCR Not detected (Not Detect) Staphylococcus sp PCR Not detected (Not Detect) Staph aureus (PCR) Not detected (Not Detect) mecA-Methicil Res Gene Not Reportable Streptococcus sp PCR Not detected (Not Detect) Group A Strep (PCR) Not detected (Not Detect) Strep agalactiae (PCR) Not detected (Not Detect) Strep pneumoniae (PCR) Not detected (Not Detect) P. aeruginosa (PCR) Not detected (Not Detect) Kaila/B-Vanco Res Genes Not Reportable KPC-Carbap Res Gene PCR Not Reportable Urine Dip Bedside Urine Glucose Negative Bedside Urine Bilirubin - Negative Bedside Urine Ketone +++ 80 Urine Specific [place] 1.010 Bedside Urine Occult Blood - Negative Bedside Urine pH 7.5 Bedside Urine Protein + 30 Bedside Urine Urobilinogen - Negative Bedside Urine Nitrite - Negative Bedside Urine Leukocytes - Negative Esterase Critical Care Time <Tato Meza DO - Last Filed: 02/27/22 18:47> Critical Care Time Critical Care Time: Yes Total Critical Care Time: 120 Attestation: The high probability of a clinically significant, sudden or life threatening deterioration of the [MSK] system(s) required my full and direct attention, intervention and personal management. The aggregate critical care time was [120] minutes. This time is in addition to time spent performing reported procedures but includes the following: [x] Data Review and interpretation [x] Patient assessment and monitoring of vital signs [x] Documentation [x] Medication orders and management Discharge Plan Departure Patient Disposition: Left Against Medical Advice Clinical Impression: Left against medical advice, Cellulitis of leg, right, Postoperative seroma Prescriptions: No Action lamotrigine 200 mg tablet 200 mg PO DAILY Label Comments: TAKE 1 TABLET BY MOUTH ONCE DAILY acetaminophen 500 mg tablet 1,000 mg PO TID PRN (Reason: Pain (Scale Score 4-6)) aspirin 325 mg tablet,delayed release (DR/EC) 325 mg PO QAM bupropion HCl 300 mg tablet extended release 24 hr 300 mg PO QAM Label Comments: TAKE 1 TABLET BY MOUTH ONCE DAILY IN THE MORNING Referrals: Miscellaneous,Doctor, MD [Primary Care Provider] - Stand Alone Forms: Against Medical Advice
[2022-02-26] MEDS: LACTATED RINGERS 2,328 ML 776 ML IV (01:09)
[2022-02-26 01:17] LABS: Add Manual Diff / Slide Review NO; Basophils Absolute Auto 100 /uL (0-100); Basophils Percent Auto 0.2 % (0-2); Eosinophils Absolute Auto 300 /uL (0-450); Eosinophils Percent Auto 1.4 % (2-4); Hematocrit 43.2 % (41-53); Hemoglobin 14.8 g/dL (13.5-17.5); Lymphocytes Absolute Auto 1400 /uL (1100-4500); Lymphocytes Percent Auto 6.9 % (25-40); Mean Corpuscular HGB Conc 34.2 % (30-36); Mean Corpuscular Hemoglobin 30.9 PG (26-34); Mean Corpuscular Volume 90.4 fL (80-100); Monocytes Absolute Auto 1400 /uL (0-900); Monocytes Percent Auto 6.8 % (3-14); Neutrophils Absolute Auto 17700 /uL (1500-7000); Neutrophils Percent Auto 84.7 % (50-75); Platelet Count 185 X10^3/uL (150-400); Red Blood Cell Count 4.77 X10^6/uL (4.5-5.9); Red Cell Distribution Width 12.9 % (11.6-14.8); White Blood Cell Count 20.9 X10^3/uL (4.5-11.0)
[2022-02-26 01:18] LABS: Lactate (Lactic Acid) 0.7 mmol/L (0.7-2.1)
[2022-02-26 01:20] LABS: Alanine Aminotransferase 49 IU/L (<50); Albumin 4.4 g/dL (3.5-5.0); Albumin Globulin Ratio 1.2 (1.0-2.8); Alkaline Phosphatase 96 U/L (38-126); Aspartate Aminotransferase 30 IU/L (17-59); Bilirubin Total 2.3 mg/dL (0.2-1.3); Blood Urea Nitrogen 20 mg/dL (9-20); Calcium 9.2 mg/dL (8.4-10.2); Carbon Dioxide 27 mmol/L (22-32); Chloride 100 mmol/L (98-107); Creatine Kinase 52 U/L (55-170); Estimated Glomerular Filt Rate > 60 mL/min (>60); Globulin 3.7 g/dL (1.7-4.1); Glucose 108 mg/dL (70-100); HEMOLYSIS < 15 (0-50); Potassium 3.6 mmol/L (3.4-5.1); Sodium 139 mmol/L (137-145); Total Protein 8.1 g/dL (6.3-8.2)
[2022-02-26 01:31] LABS: Troponin I < 0.012 ng/mL (0.01-0.034)
[2022-02-26 01:36] LABS: Procalcitonin 0.62 ng/mL (<0.5)
[2022-02-26 04:23] LABS: COVID19 -Nasal RAPID Negative (Negative)
--- NOTE | 2022-02-26 05:21 | DI.MRI.S_ITS ---
PROCEDURE: MR LOWER LEG RT WO/W CON INDICATIONS: post operative infection, request per ortho at TECHNIQUE: Noncontrast coronal T1 spin echo and STIR, sagittal T1 spin echo with fat saturation and STIR, axial T1 spin echo and T2 fast spin echo with fat saturation. After the administration of contrast, axial/sagittal/coronal T1 spin echo with fat saturation through the right lower leg. COMPARISON: [facility], CR, XR TIBIA FIBULA RT 2V, 02/26/2022, 0:57. FINDINGS: Image quality: Excellent. Bones: Evidence of prior surgery involving mid to distal tibial shaft is seen with surgical screw tracts seen. There is a healing mid to distal tibial shaft fracture. No marrow edema. No acute fracture or dislocation. No abnormal intraosseous enhancement. Soft tissues: Significant soft tissue edema and swelling along medial aspect of mid to distal right lower leg over mid to distal tibial shaft is seen and show mild heterogeneous contrast enhancement. There is a lobulated nonenhancing fluid collection within this area and measures up to 3.6 x 1.9 x 7 cm in size series 4, image 20 and series 8, image 12. No thick peripherally enhancing capsule is noted. Fluid is seen extending along fascial planes superficial and deep to the gastrocnemius muscle. Mild T2 hyperintense signal within anterior and medial portion of medial head gastrocnemius muscle in mid calf level is seen. No intramuscular collection is seen. No other area of abnormal enhancement. IMPRESSION: 1. Finding is suggestive of cellulitis involving medial and posterior right lower leg soft tissue at the level of mid to distal tibial shaft over prior surgical site. Lobulated fluid collection in medial lower leg soft tissue within the area of cellulitis is seen measures up to 3.6 x 1.9 x 7 cm in size. Finding likely represent organizing hematoma or seroma. Early abscess collection cannot be excluded. Clinical and radiographic follow-up is recommended. 2. Postsurgical changes involving mid to distal tibial shaft from prior ORIF. Healing mid to distal tibial shaft fracture. No MR evidence of osteomyelitis. New 3. Suggestion of myositis involving anterior and medial portion of gastrocnemius muscle medial head. No discrete intramuscular fluid collection. Dictated by: Tony Candelaria M.D. on 02/26/2022 at 8:50 Approved by: Tony Candelaria M.D. on 02/26/2022 at 9:10
[2022-02-26] MEDS: VANCOMYCIN 2,000 MG/400 ML PIGGYBACK 200 MG IV (05:24)
[2022-02-26 07:56] LABS: Bacteria Urine None Seen; Culture Indicated Urine Cult Not Indicated; RBC Urine None Seen (0-5/HPF); Squamous Epithelial Cell Urine None Seen (0-5/HPF); WBC Urine None Seen (0-5/HPF)
--- NOTE | 2022-02-26 13:57 | PC.NURSE ---
Dressing placed for pt comfort, wound is oozing.
[2022-02-26] MEDS: VANCOMYCIN 1,500 MG/300 ML PIGGYBACK 200 MG IV (17:32)
[2022-02-26] MEDS: VANCOMYCIN PER PHARMACY 1 REQUEST MISC (17:32)
--- NOTE | 2022-02-26 17:47 | PC.NURSE ---
Called [facility] for an update on bed assignment. No beds at this time. Hopefully sometime tonight, maybe tomorrow Asked that we call back at 2100.
[2022-02-26 23:36] LABS: Enterococcus species Not Detected (Not Detect); Listeria monocytogenes Not Detected (Not Detect); Staphylococcus species Not Detected (Not Detect)
[2022-02-26 23:37] LABS: Acinetobacter baumannii Not Detected (Not Detect); Candida albicans Not Detected (Not Detect); Candida glabrata Not Detected (Not Detect); Candida krusei Not Detected (Not Detect); Candida parapsilosis Not Detected (Not Detect); Candida tropicalis Not Detected (Not Detect); E. coli Not Detected (Not Detect); Enterobacter cloacae complex Not Detected (Not Detect); Enterobacteriaceae species Not Detected (Not Detect); Haemophilus influenzae Not Detected (Not Detect); Neisseria meningitidis Not Detected (Not Detect); Proteus species Not Detected (Not Detect); Pseudomonas aeruginosa Not Detected (Not Detect); Serratia marcescens Not Detected (Not Detect); Streptococcus agalactiae (Gr B Not Detected (Not Detect); Streptococcus pneumonia Not Detected (Not Detect); Streptococcus pyogenes (Gr A) Not Detected (Not Detect); Streptococcus species Not Detected (Not Detect)
[2022-02-27] VITALS (25 sets, daily range): BP systolic 108–130; BP diastolic 57–85; PULSE 67–91; RESP 18; TEMP 36.9; O2SAT 96–99
--- NOTE | 2022-02-27 00:11 | PC.NURSE ---
Addendum entered by Emelia Day CNA 02/27/22 00:12: this was was Pricila in the transfer center at 2140. Original Note: REZA/ROHAN note: patient accepted at /[facility], but they don't have beds. Wants us to call back in AM after their shift change, around 0800.
--- NOTE | 2022-02-27 00:59 | PC.NURSE ---
Pt put injection molding machine operator light asking for RLE dressing to be changed as the dressing was saturated. Dressing changed, new non-adherent gauze applied and secured to leg with gauze roll. Pt provided with two pillows for comfort. Pt urinal emptied and replaced. Pt denies further needs at this time.
[2022-02-27] MEDS: VANCOMYCIN 1,500 MG/300 ML PIGGYBACK 200 MG IV (05:01)
[2022-02-27] MEDS: ENOXAPARIN 40 MG/0.4 ML SYRINGE SUBCUT (09:28)
--- NOTE | 2022-02-27 10:55 | PC.NURSE ---
hot compresses on leg per Dr. Elizabeth. Dr. Elizabeth was able to get some dark brown pus from leg prior to compresses. will re-evaluate after
[2022-02-27] MEDS: KETOROLAC 30 MG/ML VIAL IV (11:34)
--- NOTE | 2022-02-27 13:19 | PC.NURSE ---
Patient notified this RN his plans to leave against medical advice to go to Emergency Department directly. Educated patient about risks of leaving and benefits of staying, patient acknowledged education. Father of patient picked him up and patient ambulated out of the department after removal of bilateral AC peripheral IVs. Dr Elizabeth notified of patient leaving AMA and he acknowledged.
== END 2022-02-27 13:20 | disposition left against medical advice (07) ==
PROVIDERS: Emergency Medicine; Emergency Provider Emergency Medicine
DX: L76.34 Postprocedural seroma of skin and subcutaneous tissue following other procedure (principal); L03.115 Cellulitis of right lower limb; Z20.822 Contact with and (suspected) exposure to COVID-19
CPT/HCPCS: 36415; 73590; 73720; 80053; 81003; 81015; 82550; 83605; 84145; 84484; 85025; 87040; 87070; 87077; 87086; 87147; 87150; 87186; 87205; 87635; 96361; 96365; 96366; 96372; 96375; 99284; 99291; 99292; C9803; J1650; J1885